=== PATIENT | male | born 1985 | race Caucasian/White ===

== ENCOUNTER 2018-05-05 14:06 | Emergency (ER) | payer BC ==
[2018-05-05 14:38] LABS: URINE APPEARANCE SL CLOUDY; URINE BILIRUBIN NEGATIVE (NEGATIVE); URINE BLOOD LARGE (NEGATIVE); URINE COLOR YELLOW; URINE GLUCOSE (UA) NEGATIVE (NEGATIVE); URINE KETONE NEGATIVE (NEGATIVE); URINE LEUKOCYTE ESTERASE NEGATIVE (NEGATIVE); URINE NITRITE NEGATIVE (NEGATIVE); URINE PROTEIN TRACE (NEGATIVE)
[2018-05-05 14:43] LABS: URINE EPITHELIAL CELLS NONE SEEN (FEW); URINE WBC NONE SEEN (0-2/hpf)
[2018-05-05] MEDS ORDERED: ONDANSETRON HCL IV 4 MG/2 ML VIAL IV ONE (14:48)
[2018-05-05] MEDS ORDERED: 0.9 % SODIUM CHLORIDE 1,000 ML BAG IV ONE (14:48)
--- NOTE | 2018-05-05 14:52 | Emergency Department Record ---
History of Present Illness - General Chief complaint: Flank Pain Stated complaint: FLANK PAIN LEFT SIDE Time Seen by Provider: 05/05/18 14:41 Source: Patient Mode of Arrival: Ambulatory Limitations: No limitations - History of Present Illness Initial comments: The patient is here due to a 3 day hx of intermittent L flank pain. He has had some nausea, vomiting and diarrhea but feels it was due to the stomach flu that he also has had. The patient denies any fevers but has had 2 kidney stones in the past. MD Complaint: Other Onset/Timin -: Days(s) Location: Left flank Radiation: None Severity: Moderate Severity scale (1-10): 6 Quality: Aching Consistency: Constant Improves with: None Worsens with: None Reports: Denies other symptoms - Related Data Sexually active: No Home Medications Medication Instructions Recorded Confirmed Last Taken Dextroamphetamine/Amphetamine 20 mg PO DAILY 05/05/18 05/05/18 Unknown [Adderall 20 mg Tablet] Dextroamphetamine/Amphetamine 20 mg PO QAM 05/05/18 05/05/18 Unknown [Adderall Xr] Previous Rx's Medication Instructions Recorded Hydrocodone/Acetaminophen [Langford 1 - 2 each PO QID #15 tablet 05/05/18 5-325 Tablet] Tamsulosin HCl [Flomax] 0.4 mg PO DAILY #7 cap.er.24h 05/05/18 Allergies Allergy/AdvReac Type Severity Reaction Status Date / Time No Known Drug Allergies Allergy Verified 05/05/18 16:37 Travel Screening - Travel/Exposure Within Last 30 Days Have you traveled within the last 30 days?: No Review of Systems Constitutional: Denies: Chills, Fever, Other Eyes: Denies: Eye discharge ENT: Denies: Congestion Respiratory: Denies: Cough, Dyspnea Past Medical History - SOCIAL HISTORY Smoking Status: Current every day smoker Alcohol Use: Rare Drug Use: None - RESPIRATORY Hx Respiratory Disorders: No - CARDIOVASCULAR Hx Cardio Disorders: No - NEURO Hx Neuro Disorders: No - GI Hx GI Disorders: No - Hx Genitourinary Disorders: Yes Hx Kidney Stones: Yes (hx) - ENDOCRINE Hx Endocrine Disorders: No - MUSCULOSKELETAL Hx Musculoskeletal Disorders: No - PSYCH Hx Psych Problems: No - HEMATOLOGY/ONCOLOGY Hx Hematology/Oncology Disorders: No Family Medical History Any Significant Family History?: No Physical Exam - General General Appearance: Alert, Oriented x3, Cooperative, No acute distress - Head Head exam: Atraumatic, Normocephalic, Normal inspection - Eye Eye exam: Normal appearance, PERRL - Neck Neck exam: Normal inspection, Full ROM. negative: Tenderness - Respiratory Respiratory exam: Normal lung sounds bilaterally. negative: Respiratory distress - Cardiovascular Cardiovascular Exam: Regular rate, Normal rhythm, Normal heart sounds - GI/Abdominal GI/Abdominal exam: Soft, Normal bowel sounds. negative: Guarding, Rebound, Rigid, Tenderness - Extremities Extremities exam: Normal inspection, Full ROM, Normal capillary refill. negative: Tenderness - Neurological Neurological exam: Alert, Normal gait. negative: Abnormal gait, Motor sensory deficit - Skin Skin exam: negative: Rash Course - Reevaluation(s) Reevaluation #1: The patient is doing a lot better at this time. He is resting comfortably with no nausea, vomiting, or significant discomfort. 05/05/18 15:50 Reevaluation #2: The patient is doing a lot better at this time. I did discuss the case with Dr. Salinas who can see the patient in the Specialty clinic on Sunday. The patient is to take work off and take the pain medicines at home and see Dr. Salinas in 2 days. He is to return for any worsening pain, fever, or vomiting. 05/05/18 16:38 Medical Decision Making - Data Complexity MDM Data: Labs Ordered and/or Reviewed, X-Ray Ordered and/or Reviewed - Lab Data Result diagrams: 05/05/18 14:54 05/05/18 14:54 Lab Results 05/05/18 Range/Units 14:30 Urine Color Yellow Urine Appearance Sl cloudy Urine pH 6.0 (5.0-8.0) Ur Specific [place] 1.020 (1.002-1.030) Urine Protein Trace H (NEGATIVE) Urine Glucose (UA) Negative (NEGATIVE) Urine Ketones Negative (NEGATIVE) Urine Blood Large H (NEGATIVE) Urine Nitrite Negative (NEGATIVE) Urine Bilirubin Negative (NEGATIVE) Urine Urobilinogen 1.0 (0.20 - 1.00) E.U./dL Ur Leukocyte Esterase Negative (NEGATIVE) Urine RBC Too numerous to cnt (NONE SEEN) Urine WBC None seen (0-2/hpf) Ur Epithelial Cells None seen (FEW) - Radiology Data Radiology results: Report reviewed (CT: 6x4 mm stone L proximal ureter at UPJ with mild hydro.) Disposition Disposition: Discharge Clinical Impression: Ureteral stone with hydronephrosis Disposition: Home, Self-Care Condition: (2) Stable Instructions: Renal Colic (ED) Additional Instructions: PLease take Motrin for pain and also Langford if needed. Take the Flomax as directed and please see Dr. Salinas in the Specialty Clinic on Sunday. Also call his office to give your demographic info. Return to the ER for any worsening pain, fever, or vomiting. Prescriptions: Hydrocodone/Acetaminophen [Langford 5-325 Tablet] 1 - 2 each PO QID #15 tablet Tamsulosin HCl [Flomax] 0.4 mg PO DAILY #7 cap.er.24h Referrals: MIRYAM SALINAS M.D. [MEDICAL DOCTOR] - [facility] Special[facility] [Provider Group] Forms: Patient Portal Access Time of Disposition: 16:42 Quality - Quality Measures Quality Measures: N/A - Blood Pressure Screening View Details: Yes Does Patient Have Any of the Following: No Blood Pressure Classification: Normal BP Reading Systolic Measurement: 112 Diastolic Measurement: 74 Screening for High Blood Pressure: < Normal BP, F/U Not Required > [G8783]
[2018-05-05 15:02] LABS: BASO % 0.4 % (0-6); EOS % 2.4 % (0-6); GRAN % 71.2 % (47-80); HEMATOCRIT 44.8 % (42.0-52.0); LYMPH % 15.1 % (16-45); MEAN CELL VOLUME 91.8 fl (81-97); MEAN CORPUSCULAR HEMOGLOBIN 30.7 pg (27-33); MEAN CORPUSCULAR HGB CONC 33.5 g/dl (32-36); MEAN PLATELET VOLUME 9.2 fl (7.4-10.4); MONO % 10.9 % (0-9); PLATELET COUNT 330 K/uL (130-400); RED BLOOD COUNT 4.88 M/uL (4.40-5.70); RED CELL DISTRIBUTION WIDTH 13.9 % (11.5-14.5); WHITE BLOOD COUNT W/O DIFF 10.2 K/uL (4.2-12.2)
[2018-05-05 15:15] LABS: BLOOD UREA NITROGEN 16 mg/dL (6-20); CREATININE 1.1 mg/dL (0.7-1.2); EST GLOMERULAR FILTRATION RATE > 60 mL/min
[2018-05-05 15:17] LABS: GLUCOSE,RANDOM 77 mg/dL (74-109)
[2018-05-05] MEDS ORDERED: KETOROLAC 30 MG/ML VIAL IVP ONE (15:19)
--- NOTE | 2018-05-06 09:50 | CT SCAN REPORT ---
EXAM: CT SCAN OF THE ABDOMEN AND PELVIS WITHOUT CONTRAST HISTORY: LEFT FLANK PAIN WITH GROSS HEMATURIA FOR THE PAST DAY. TECHNIQUE: Standard CT imaging of the abdomen and pelvis was performed without contrast. Comparison: None. FINDINGS: The lung bases are clear. The liver, gallbladder, biliary tree, pancreas, spleen, and adrenal glands are normal. There is a 6 x 4 mm calculus within the left ureteropelvic junction resulting in mild hydronephrosis. A 5 mm nonobstructing stone is present at the lower pole of the right kidney. The right ureter is normal. The aorta is normal in caliber. There is no retroperitoneal lymphadenopathy. The large and small bowel loops including the appendix are normal. There is no pneumoperitoneum or ascites. The urinary bladder and prostate gland are normal. The abdominal wall is unremarkable. There are no acute osseous abnormalities. IMPRESSION: 1. A 6 X 4 MM CALCULUS IS PRESENT WITHIN THE LEFT URETEROPELVIC JUNCTION AND RESULTS IN MILD HYDRONEPHROSIS. 2. 5 MM NONOBSTRUCTING STONE AT THE LOWER POLE OF THE RIGHT KIDNEY. JOB NUMBER: [id number] MTDD
== END 2018-05-05 17:23 | disposition home or self-care (01) ==
LOC: ER 14:06
DX: N13.2 Hydronephrosis with renal and ureteral calculous obstruction (principal); R31.0 Gross hematuria; R11.2 Nausea with vomiting, unspecified; R19.7 Diarrhea, unspecified; Z87.442 Personal history of urinary calculi; F17.210 Nicotine dependence, cigarettes, uncomplicated
CPT/HCPCS: 99284 ×2; 96374; 96375; 96361; 85025; 80048; 81001; 74176; J1885; J2405; J7030